=== PATIENT | female | born 1975 | race Two or more races ===

== ENCOUNTER 2017-04-10 09:55 | Emergency (ER) | payer BC, OTHER | END 2017-04-10 10:42 | disposition home or self-care (01) | LOC: ER 09:55 | DX: J40 Bronchitis, not specified as acute or chronic (principal); Z88.2 Allergy status to sulfonamides; Z88.1 Allergy status to other antibiotic agents; Z90.49 Acquired absence of other specified parts of digestive tract | CPT/HCPCS: 99283 ==